=== PATIENT | male | born 1950 | race Caucasian/White ===

== ENCOUNTER 2016-07-24 11:44 | Outpatient (RCR) | payer MEDICARE, OTHER ==
[~2016-07-24 11:44] MED LIST: ASP81TEC PO; CANA1TAB2 PO; CLOP75TA PO; GLIP5TAB13 PO; INSU300I SQ; LISI20TA PO; LOVA20TA2 PO; MECL12.579 PO; MECL25TA56 PO; METO-272 PO; METO25TA2 PO; MTF500T PO
== END 2016-10-22 | disposition home or self-care (01) ==
LOC: LAB 11:44
PROVIDERS: ATTEND Nurse Practitioner Family
DX: R19.7 Diarrhea, unspecified (principal)
CPT/HCPCS: 87045; 87046; 87177; 87324; 87449

== ENCOUNTER 2016-07-29 06:22 | Outpatient (CLI) | payer MEDICARE, OTHER ==
[~2016-07-29] VITALS: Ht 188 cm; Wt 127.0 kg
--- OUTSIDE RECORDS SUMMARY | 2016-07-29 06:26 | XMS REPORT ---
Author Author Samantha Galvan Organization [facility] Address [address] [place], [place] [id number] Care Team Providers Care Justowriter Operator Name Role Phone Mady Galvan PCP Unavailable Allergies and Adverse Reactions Name Reaction Notes NO KNOWN DRUG ALLERGIES Plan of Treatment Planned Activity Comments Planned Date Planned Time Plan/Goal Renal Ultrasound 10/20/2015 12:00 AM Medications Active Name Start Date Estimated Completion Date SIG Comments lisinopril oral Invokamet 50-1,000 mg oral tablet take 1 tablet by oral route 2 times per day with meals Toujeo SoloStar 300 unit/mL (1.5 mL) subcutaneous insulin pen inject by subcutaneous route as per insulin protocol Aspir-81 81 mg oral tablet,delayed release (DR/EC) take 1 tablet (81 mg ) by oral route once daily glipizide 5 mg oral tablet take 1 tablet (5 mg) by oral route 2 times per day before meals VitaliKor Oral Cialis 20 mg oral tablet take as instructed Name Start Date Expiration Date SIG Comments Mobic 7.5 mg oral tablet take 1 tablet (7.5 mg) by oral route once daily Discontinued Name Start Date Discontinued Date SIG Comments metformin oral 10/20/2015 Problem List Description Status Onset Benign Hypertrophy of Prostate (BPH) Active 07/28/2014 Groin pain, right Active 04/12/2015 Benign non-nodular prostatic hyperplasia with lower urinary tract symptoms Active 04/12/2015 History of urinary calculi Active 10/20/2015 Back pain without radiation Active 10/20/2015 Benign hypertrophy of prostate Active 10/20/2015 ED (erectile dysfunction) Active 10/30/2015 Vital Signs Date Time BP-Sys(mm[Hg] BP-Kasandra(mm[Hg]) HR(bpm) RR(rpm) Temp WT HT HC BMI BSA BMI Percentile O2 Sat(%) 10/30/2015 11:18:00 AM 300 lbs 74 in 38.52 kg/m2 2.67 m2 04/12/2015 8:48:00 AM 300 lbs 74 in 38.5173 kg/m 2.6655 m 07/28/2014 10:25:00 AM 300 lbs 74 in 38.52 kg/m2 2.67 m2 Social History Name Description Comments Alcohol Former Tobacco Former smoker History of Procedures Date Ordered Description Order Status 04/12/2015 9:37 AM URINALYSIS AUTO W/O SCOPE Reviewed 10/20/2015 12:00 AM ASSAY OF PSA TOTAL Reviewed 10/20/2015 1:51 PM URINALYSIS AUTO W/O SCOPE Reviewed 10/26/2015 12:[address] ABD & PELVIS W/O CONTRAST Reviewed 07/28/2014 2:38 PM URINALYSIS AUTO W/O SCOPE Reviewed Results Summary Data and Description Results 07/28/2014 2:38 PM Bilirub Ur Ql Strip -VE Glucose Ur-sCnc TRACE Hgb Ur Ql Strip -VE Ketones Ur Ql Strip -VE Nitrite Ur Ql Strip -VE pH Ur-LsCnc 6.0 Prot Ur Ql Strip -VE Sp Gr Ur Qn 1015 Urobilinogen Ur-mCnc -VE WBC Est Ur Ql Strip - VE 04/12/2015 9:37 AM Clarity Ur CLEAR Color Ur ----- Glucose Ur-sCnc TRACE Bilirub Ur Ql Strip -VE Ketones Ur Ql Strip -VE Sp Gr Ur Qn 1020 Hgb Ur Ql Strip -VE pH Ur-LsCnc 6.0 Prot Ur Ql Strip -VE Urobilinogen Ur-mCnc -VE Nitrite Ur Ql Strip -VE WBC Est Ur Ql Strip -VE 10/20/2015 11:05 AM PSA TOTAL 1.710 ng/mL 10/20/2015 1:51 PM Clarity Ur CLEAR Color Ur ------- Glucose Ur-sCnc -VE Bilirub Ur Ql Strip -VE Ketones Ur Ql Strip -VE Sp Gr Ur Qn 1020 Hgb Ur Ql Strip -VE pH Ur-LsCnc 6- Prot Ur Ql Strip -VE Urobilinogen Ur-mCnc -VE History Of Immunizations Not available. History of Past Illness Name Date of Onset Comments Benign Hypertrophy of Prostate (BPH) 07/28/2014 Groin pain, right 04/12/2015 Benign non-nodular prostatic hyperplasia with lower urinary tract symptoms 09/2014 History of urinary calculi 10/20/2015 Back pain without radiation 10/20/2015 Benign hypertrophy of prostate 10/20/2015 ED (erectile dysfunction) 10/30/2015 Benign Hypertrophy of Prostate (BPH) Jul 28 2014 10:26AM Groin pain, right Apr 12 2015 8:49AM Benign non-nodular prostatic hyperplasia with lower urinary tract symptoms Apr 12 2015 8:49AM Flank pain Oct 20 2015 10:39AM History of kidney stones Oct 20 2015 10:39AM Screening for prostate cancer Oct 20 2015 10:39AM Right Back pain without radiation Oct 20 2015 10:04AM History of urinary calculi Oct 20 2015 10:04AM Benign hypertrophy of prostate Oct 20 2015 10:04AM Flank pain Oct 26 2015 1:56PM History of kidney stones Oct 26 2015 1:56PM ED (erectile dysfunction) Oct 30 2015 11:19AM Payers Insurance Name Company Name Plan Name Plan Number Policy Number Policy Group Number Start Date Medicare Part B Medicare Of [place] [id number] N/A History of Encounters Visit Date Visit Type Provider 10/30/2015 Office visit V Liseth Galvan MD 10/20/2015 Office visit V Liseth Galvan MD 04/12/2015 Office visit V Liseth Galvan MD 07/28/2014 Office visit Samantha Galvan MD
== END 2016-07-29 14:10 ==
LOC: PREOP 06:22
PROVIDERS: ATTEND Surgery Pediatric Surgery
DX: Z01.818 Encounter for other preprocedural examination (principal); Z12.11 Encounter for screening for malignant neoplasm of colon; Z87.19 Personal history of other diseases of the digestive system

== ENCOUNTER 2016-07-31 09:28 | Day surgery (SDC) | payer MEDICARE, OTHER ==
[~2016-07-31] VITALS: Ht 188 cm; Wt 127.0 kg
[2016-07-31] MEDS ORDERED: LIDOCAINE JELLY 2% (XYLOCAINE) 5 ML TUBE MM PRN (09:45)
[2016-07-31] MEDS ORDERED: NS IV 500 ML 500 ML IV PRN (09:45)
[2016-07-31] MEDS ORDERED: NALOXONE 0.4 MG/ML 1 ML (NARCAN) VIAL IVP PRN (09:45)
[2016-07-31] MEDS ORDERED: FLUMAZENIL (ROMAZICON) 0.1 MG/ML 5 ML VIAL INJ PRN (09:45)
[2016-07-31 09:58] VITALS: BP 151/75
--- NOTE | 2016-07-31 10:15 | Conscious Sedation/ASA ---
Conscious Sedation Pre-Proced Time Reviewed: 10:15 ASA Class: 2 Airway Mallampati Classification: ([place] appropriate class) I. II. III, IV Lungs Heart ASA score ASA 1: a normal healthy patient ASA 2: a patient with a mild systemic disease (mid diabetes, controlled hypertension, obesity ASA 3: a patient with a severe systemic disease that limits activity (angina , COPD, prior Myocardial infarction) ASA 4: a patient with an incapacitating disease that is a constant threat to life (CHF, renal failure) ASA 5: a moribund patient not expected to survive 24 hrs. (ruptured aneurysm) ASA 6: a declared brain patient whose organs are being harvested. For emergent operations, add the letter E after the classification Grade 2 Sedation Plan: Analgesia, Amnesia, Plan communicated to team members, Discussed options with patient/fam, Discussed risks with patient/fam Note The patient is an appropriate candidate to undergo the planned procedure, sedation, and anesthesia. The patient immediately re-assessed prior to indication. EPHRAIM RAWLS MD Jul 31, 2016 10:15 am
--- NOTE | 2016-07-31 10:20 | Progress Note-Pre Operative ---
Pre-Operative Progress Note H&P Reviewed The H&P was reviewed, patient examined and no changes noted. Date H&P Reviewed: Jul 31, 2016 Time H&P Reviewed: 10:15 Pre-Operative Diagnosis: diarrhea EPHRAIM RAWLS MD Jul 31, 2016 10:20 am
[2016-07-31] MEDS ORDERED: ONDANSETRON 4 MG/2 ML (SDV) Z0FRAN IV PRN (10:30)
[2016-07-31] MEDS ORDERED: ACETAMINOPHEN 325 MG TABLET/CAPLET (TYLENOL) PO PRN (10:30)
[2016-07-31] MEDS ORDERED: HYDROcodone/APAP 5 MG/325 MG (LORTAB) TAB PO PRN (10:30)
[2016-07-31] MEDS ORDERED: morphine INJ 10 MG/ML 1ML (SYR OR VIAL) IV PRN (10:30)
[2016-07-31] MEDS ORDERED: LIDOCAINE JELLY 2% (XYLOCAINE) 5 ML TUBE ONE (11:22)
[2016-07-31] MEDS ORDERED: MIDAZOLAM 2 MG/2 ML (VERSED) VIAL ONE ×4 (11:23)
[2016-07-31] MEDS ORDERED: fentaNYL INJECTION 100 MCG/2 ML AMP ONE ×2 (11:23)
[2016-07-31] MEDS: fentaNYL INJECTION 100 MCG/2 ML AMP IVP PRN ×2 (11:27→11:29)
[2016-07-31] MEDS: MIDAZOLAM 2 MG/2 ML (VERSED) VIAL IVP PRN ×3 (11:28→11:33)
--- NOTE | 2016-07-31 12:05 | Progress Note-Post Operative ---
Post-Operative Progess Note Pre-Operative Diagnosis diarrhea Post-Operative Diagnosis chronic stage 2 ext and int hemorrhoids. Post-Op Procedure Note Date of Procedure: Jul 31, 2016 Name of Procedure: Colonoscopy Anesthesia Type CS Estimated blood loss (mL): minimal Specimen(s) collected stool EPHRAIM RAWLS MD Jul 31, 2016 12:05 pm
--- NOTE | 2016-07-31 12:07 | Discharge Inst-Surgical ---
D/C Lap Instructions-CURLY Follow Up PRN Activity as tolerated High Fiber Diet 25g or more per day Avoid Alcohol, Caffeine, Spicy [place] and Acid foods. Drink 64 fluid oz or more of fluids per day. Symptoms to Report: Fever over 101 degree F, Nausea/Vomiting If any problems/questions: Contact your physician or go to Emergency Room EPHRAIM RAWLS MD Jul 31, 2016 12:07 pm
[2016-07-31 12:25] VITALS: BP 117/69
[2016-07-31 12:55] VITALS: BP 121/66
--- NOTE | 2016-08-01 11:48 | OPERATIVE REPORT ---
PROCEDURE PHYSICIAN: EPHRAIM GOLDSTEIN DATE OF PROCEDURE: 07/31/2016 ATTENDING PRIMARY CARE PHYSICIAN: Dr. Flowers. PREOPERATIVE DIAGNOSIS: Persistent diarrhea. POSTOPERATIVE DIAGNOSES: 1. Chronic, mild stage II external and internal hemorrhoids. 2. The remainder of the rectum and colon were normal. 3. There were no mucosal inflammatory changes, as well as no neoplasms identified. PROCEDURE: Colonoscopy. SURGEON: Dr. Goldstein. ANESTHESIA: Conscious sedation. ESTIMATED BLOOD LOSS: Minimal. FINDINGS: 1. Chronic stage II external and internal hemorrhoids. 2. Prostate gland was palpable and appeared normal. 3. The remainder of the rectum and colon were normal. 4. There were no mucosal inflammatory changes to indicate any active colitis as well as no polyps or any neoplasms. DISPOSITION: The patient tolerated the procedure well. Mr. Vladimir Hunt is a 66-year-old male with chronic and persistent diarrhea. He reports that his last colonoscopy was around 2007, and he believes that to be normal. He reports that for greater than 6 months, he has had diarrhea which he feels is foul-smelling. He does not report any recent travel, as well as no new water-drinking sources. He also does not report any change in diet. He does report that he potentially could have had some medication changes throughout this time frame. He reports that he did have an accident where a glass broke causing several lacerations. He reports that he also has had some upper respiratory infections requiring antibiotics. He does not report any abdominal pain, as well as no rectal bleeding. He has also does not report any family history of colon cancer. The patient was brought to the endoscopy suite, laid in left lateral decubitus position. After adequate IV pain and sedative medications and conscious sedation anesthesia, a digital rectal examination was performed. Chronic mild stage II external and internal hemorrhoids were identified with no active inflammation or bleeding. The prostate gland was palpable and appeared normal. The endoscope was then intubated into the anus, rectum gently insufflated. The endoscope was advanced through the valves of Devine the rectum with no polyps or any neoplasms identified, as well as no signs of proctitis. The endoscope was then advanced through the sigmoid colon where there were no diverticula identified. The endoscope was then advanced through the remainder of the descending, transverse, and ascending colon of the cecum. These segments were normal as well. There were no mucosal inflammatory changes to indicate any active colitis, as well as no polyps or any neoplasms identified. The endoscope was then slowly withdrawn while taking a second look. The stool within the right side of the colon was aspirated and sent for culture and sensitivity as well as ova and parasites. The patient tolerated the procedure well. We will await the culture and sensitivity results however, have him proceed with a high fiber diet with at least 30 grams of fiber per day to hopefully promote soft stools on a daily basis with no episodes of diarrhea, as well as no constipation. Job ID: [id number] Dictated Date: 07/31/2016 12:06:43 Supervisor Multifocal Lens Date: 08/01/2016 11:38:44 / shaista
== END 2016-07-31 12:55 | disposition home or self-care (01) ==
LOC: ENDO 09:28
PROVIDERS: ATTEND Surgery Pediatric Surgery
DX: K64.1 Second degree hemorrhoids (principal); R19.7 Diarrhea, unspecified
CPT/HCPCS: 87045; 87046; 87177

== ENCOUNTER 2016-08-22 09:42 | Outpatient (RCR) | payer MEDICARE, OTHER | END 2016-10-16 15:50 | disposition home or self-care (01) | PROVIDERS: ATTEND Orthopaedic Surgery | DX: M47.892 Other spondylosis, cervical region (principal); M75.01 Adhesive capsulitis of right shoulder; M75.02 Adhesive capsulitis of left shoulder ==

== ENCOUNTER → 2018-07-01 | Outpatient (CLI) | payer MEDICARE, OTHER ==
--- NOTE | 2018-07-01 09:07 | Diagnostic Imaging Report ---
PROCEDURE: US Abdomen, limited. TECHNIQUE: Multiple realtime grayscale images were obtained over the abdomen in various projections. INDICATION: Abdominal pain. Study is performed to evaluate for hernia. Sonography interrogation of the area of pain in the right lower quadrant was performed. No abdominal wall defect or hernia is seen. No mass or fluid collection is identified. IMPRESSION: No sonographic abnormality is identified. Dictated by: Dictated on workstation # [id number]
== END ==
LOC: RAD 06:41
PROVIDERS: ATTEND Nurse Practitioner Family
DX: K59.00 Constipation, unspecified (principal); E66.9 Obesity, unspecified; I10 Essential (primary) hypertension; I65.29 Occlusion and stenosis of unspecified carotid artery; E11.9 Type 2 diabetes mellitus without complications; M10.9 Gout, unspecified; I25.10 Atherosclerotic heart disease of native coronary artery without angina pectoris; Z95.1 Presence of aortocoronary bypass graft
CPT/HCPCS: 76705

== ENCOUNTER → 2018-07-03 | Outpatient (CLI) | payer MEDICARE, OTHER ==
[~2018-07-03] MED LIST changes: +IOHEXOL 350 MG/ML 100 ML (OMNIPAQUE 350) VIAL IV ONE; +NS 100 ML (IVPB) BAG IV ONE; +RECEIVED CONTRAST (Hold Metformin) IV SCH
[2018-07-03 14:53] LABS: ALANINE AMINOTRANSFERASE 18 U/L (0-55); ALBUMIN 4.4 GM/DL (3.2-4.5); ALKALINE PHOSPHATASE 47 U/L (40-136); BILIRUBIN,TOTAL 0.4 MG/DL (0.1-1.0); BUN/CREATININE RATIO 19; CALCIUM 9.3 MG/DL (8.5-10.1); CARBON DIOXIDE 23 MMOL/L (21-32); CHLORIDE 106 MMOL/L (98-107); CREATININE SERUM 0.99 MG/DL (0.60-1.30); GFR ESTIMATED > 60; GLUCOSE 99 MG/DL (70-105); SODIUM 139 MMOL/L (135-145); TOTAL PROTEIN 6.9 GM/DL (6.4-8.2)
--- NOTE | 2018-07-03 15:36 | Diagnostic Imaging Report ---
PROCEDURE: CT abdomen and pelvis with contrast. TECHNIQUE: Multiple contiguous axial images were obtained through the abdomen and pelvis after administration of intravenous contrast. INDICATION: Right lower quadrant pain. COMPARISON: Correlation is made with prior study from 01/26/2016. FINDINGS: The lung bases are clear. Liver demonstrates mild generalized low density consistent with hepatic steatosis. No discrete liver mass is seen. Gallbladder is unremarkable. No biliary ductal dilatation is seen. The pancreas and spleen are unremarkable. No adrenal mass is detected. Kidneys are grossly unremarkable. Aorta is calcified but non-aneurysmal. Bowel loops are normal in caliber. Appendix is visualized and appears unremarkable. No inflammatory process is seen. There is no ascites. Prostate gland is enlarged measuring 6.0 x 6.7 cm. Bladder is decompressed. No definite abdominal or pelvic lymphadenopathy is seen. IMPRESSION: 1. Hepatic steatosis. 2. No acute feature in the abdomen or pelvis is identified. 3. Prostatomegaly. Dictated by: Dictated on workstation # [id number]
== END ==
LOC: RAD 14:09
PROVIDERS: ATTEND Nurse Practitioner Family
DX: K76.0 Fatty (change of) liver, not elsewhere classified (principal)
CPT/HCPCS: 36415; 74177; 80053

== ENCOUNTER 2018-12-17 11:00 | Outpatient (CLI) | payer MEDICARE, OTHER ==
[~2018-12-17] VITALS: Ht 188 cm; Wt 108.9 kg
[~2018-12-17 11:00] MED LIST changes: +EMPA10TA PO; -IOHEXOL 350 MG/ML 100 ML (OMNIPAQUE 350) VIAL IV ONE; +LIRA0.6P3 SQ; +METF-397 PO; -NS 100 ML (IVPB) BAG IV ONE; -RECEIVED CONTRAST (Hold Metformin) IV SCH
== END 2018-12-17 12:45 | disposition home or self-care (01) ==
LOC: PREOP 11:00
PROVIDERS: ATTEND Surgery
DX: Z01.818 Encounter for other preprocedural examination (principal)

== ENCOUNTER → 2019-04-01 | Outpatient (CLI) | payer MEDICARE, OTHER ==
--- NOTE | 2019-04-01 12:39 | Diagnostic Imaging Report ---
PROCEDURE: US carotid duplex, bilateral. TECHNIQUE: Multiple real-time grayscale images were obtained over the carotid arteries in various projections, bilaterally. Additional spectral analysis and color Doppler duplex images were also obtained. INDICATION: Coronary artery disease. Patient has had prior left carotid endarterectomy in 2010. FINDINGS: Moderate calcified plaque is identified at the right carotid bifurcation extending into the proximal internal and external carotid arteries. No significant velocity elevation is identified. Left carotid system shows normal velocities. Left vertebral artery demonstrates antegrade flow. The right vertebral artery was not well visualized. IMPRESSION: Moderate right carotid plaque. However, no hemodynamically significant stenosis is detected. Note is made that the right vertebral artery was not well visualized. Parameters based on the consensus panel Jackson-Scale and Doppler ultrasound criteria published April 2003, Radiology, Volume 229. DOPPLER (peak systolic velocity M/S Right Left CCA .94 .81 ICA Proximal .72 .48 ICA Mid .58 .92 ICA Distal .49 .74 RATIO .8 1.1 ECA 1.65 1.21 VERT Not visualized adequately .47 Dictated by: Dictated on workstation # [id number]
== END ==
LOC: RAD 10:08
PROVIDERS: ATTEND Nurse Practitioner Family
DX: I25.10 Atherosclerotic heart disease of native coronary artery without angina pectoris (principal); I65.29 Occlusion and stenosis of unspecified carotid artery; Z98.890 Other specified postprocedural states
CPT/HCPCS: 93880

== ENCOUNTER → 2019-05-03 | Outpatient (CLI) | payer MEDICARE, OTHER | LOC: CARD 08:57 | PROVIDERS: ATTEND Internal Medicine Cardiovascular Disease | DX: E78.5 Hyperlipidemia, unspecified (principal); I10 Essential (primary) hypertension; R06.09 Other forms of dyspnea | CPT/HCPCS: 93306 ==

== ENCOUNTER 2020-02-01 07:38 | Outpatient (CLI) | payer MEDICARE, OTHER ==
[~2020-02-01] VITALS: Ht 162 cm; Wt 128.0 kg
[2020-02-01] MEDS ORDERED: SEMA1PEN SQ (15:49)
[2020-02-01] MEDS ORDERED: LISI2.5T PO (15:49)
== END 2020-02-01 15:54 | disposition home or self-care (01) ==
LOC: PREOP 07:38
PROVIDERS: ATTEND Surgery
DX: Z01.818 Encounter for other preprocedural examination (principal)

== ENCOUNTER 2020-02-08 09:50 | Day surgery (SDC) | payer MEDICARE, OTHER ==
[~2020-02-08] VITALS: Ht 162 cm; Wt 128.0 kg
[2020-02-08] VITALS (7 sets, daily range): BP systolic 129–153; BP diastolic 74–80
[~2020-02-08 09:50] MED LIST changes: +LISI2.5T PO; +SEMA1PEN SQ
[2020-02-08] MEDS ORDERED: LACTATED RINGERS 1,000 ML IV ONE (10:01)
[2020-02-08] MEDS ORDERED: MIDAZOLAM 2 MG/2 ML (VERSED) VIAL ONE (10:15)
[2020-02-08] MEDS ORDERED: LACTATED RINGERS 1,000 ML IV PRN (10:15)
[2020-02-08] MEDS ORDERED: PROPOFOL INJECTION 50 ML IV ONE (10:15)
--- NOTE | 2020-02-08 10:15 | Progress Note-Pre Operative ---
Pre-Operative Progress Note H&P Reviewed The H&P was reviewed, patient examined and no changes noted. Date Seen by Provider: Feb 08, 2020 Time Seen by Provider: 10:14 Date H&P Reviewed: Feb 08, 2020 Time H&P Reviewed: 10:14 Pre-Operative Diagnosis: history of polyps KAYLA PRASAD DO Feb 08, 2020 10:15
--- NOTE | 2020-02-08 11:03 | Discharge Inst-Simple/Standard ---
Discharge Inst-Standard Patient Instructions/Follow Up Plan of Care/Instructions/FU: 2 weeks robert Activity as Tolerated: Yes Discharge Diet: Regular Diet (high fiber) KAYLA PRASAD DO Feb 08, 2020 11:03
--- NOTE | 2020-02-08 11:03 | Progress Note-Post Operative ---
Post-Operative Progess Note Surgeon (s)/Marine Radio Installer And Servicer (s) Surgeon KAYLA PRASAD DO Marine Radio Installer And Servicer: na Pre-Operative Diagnosis history of polyps Post-Operative Diagnosis transverse colon polyp and internal hemorrhoids Procedure & Operative Findings Date of Procedure 02/08/20 Procedure Performed/Findings colonoscopy with hot biopsy polypectomy Anesthesia Type per ASSEMBLER FITTER Estimated Blood Loss Estimated blood loss (mL): none Specimens/Packing Specimens Removed transverse colon polyp KAYLA PRASAD DO Feb 08, 2020 11:03
--- NOTE | 2020-02-08 11:19 | Anesthesia-General Post-Op ---
MAC Patient Condition Mental Status/LOC: Same as Preop Cardiovascular: Satisfactory Nausea/Vomiting: Absent Respiratory: Satisfactory Pain: Controlled Complications: Absent Post Op Complications Complications None Follow Up Care/Instructions Patient Instructions None needed. Anesthesiology Discharge Order Discharge Order Patient is doing well, no complaints, stable vital signs, no apparent adverse anesthesia problems. No complications reported per nursing. HEIDI NORWOOD CRNA Feb 08, 2020 11:19
--- NOTE | 2020-02-08 13:29 | OPERATIVE REPORT ---
DATE OF SERVICE: 02/08/2020 PREOPERATIVE DIAGNOSIS: History of colon polyps. POSTOPERATIVE DIAGNOSIS: Transverse colon polyp and internal hemorrhoids. PROCEDURES PERFORMED: Colonoscopy with hot biopsy polypectomy. SURGEON: Kayla Hare DO ANESTHESIA: Per HVAC REFRIGERATION TECHNICIAN. ESTIMATED BLOOD LOSS: None. COMPLICATIONS: None. INDICATIONS FOR PROCEDURE: The patient is a 69-year-old male with history of colon polyps. He understands risks and benefits of procedure and wished to proceed with procedure. Consent was signed in the chart. DESCRIPTION OF PROCEDURE: The patient was taken to the endoscopy suite and placed in a left lateral recumbent position. Timeout was performed. Digital rectal exam was performed. There were no palpable polyps, masses or ulcerations. Scope was inserted in the rectum and advanced all the way to cecum with minimal difficulty. Prep was adequate. Scope was slowly retracted back. There were no polyps, masses or ulcerations within the cecum and ascending colon. In the transverse colon, a small polyp was present, which hot biopsy polypectomy was performed. Scope was then continuously retracted back. No other polyps, masses or ulcerations visualized within the remainder of the transverse, descending and sigmoid colon. Once in the rectum, scope was retroflexed noting some internal hemorrhoids. No other pathology noted. Scope was returned to its normal position and slowly withdrawn until completely removed. The patient tolerated procedure well without any complications and taken to recovery room in stable condition. RECOMMENDATIONS: The patient will need repeat colonoscopy in 5 years. Any issues before that will be seen at that time. The patient will follow up in the office in about two weeks to discuss pathology results. Job ID: [id number] DocumentID: [id number] Dictated Date: 02/08/2020 11:08:50 Multi Disciplined Language Analyst Date: 02/08/2020 13:29:12 Dictated By: KAYLA HARE DO
== END 2020-02-08 11:55 | disposition home or self-care (01) ==
LOC: ENDO 09:50
PROVIDERS: ATTEND Surgery
DX: Z12.11 Encounter for screening for malignant neoplasm of colon (principal); D12.3 Benign neoplasm of transverse colon; K64.8 Other hemorrhoids; E11.9 Type 2 diabetes mellitus without complications; I25.10 Atherosclerotic heart disease of native coronary artery without angina pectoris; I10 Essential (primary) hypertension; E66.01 Morbid (severe) obesity due to excess calories; Z68.42 Body mass index [BMI] 45.0-49.9, adult; I65.29 Occlusion and stenosis of unspecified carotid artery; I08.1 Rheumatic disorders of both mitral and tricuspid valves; Z95.5 Presence of coronary angioplasty implant and graft; G47.33 Obstructive sleep apnea (adult) (pediatric); M06.9 Rheumatoid arthritis, unspecified; Z79.84 Long term (current) use of oral hypoglycemic drugs; Z79.899 Other long term (current) drug therapy; Z86.010 Personal history of colon polyps
CPT/HCPCS: 82962; 88305

== ENCOUNTER → 2020-03-07 | Outpatient (CLI) | payer MEDICARE, OTHER ==
--- NOTE | 2020-03-07 13:54 | Diagnostic Imaging Report ---
PROCEDURE: US carotid duplex bilateral. TECHNIQUE: Multiple Real-time grayscale images were obtained over the carotid arteries in various projections, bilaterally. Additional spectral analysis and color Doppler duplex images were also obtained. INDICATION: Syncope. FINDINGS: The previous carotid Doppler exam of 04/01/2019 noted atherosclerotic disease involving both carotid systems, particularly the right carotid system. There was no hemodynamically significant stenosis identified. On this exam, there is again atherosclerotic disease of both carotid systems; however, the flow velocities still fail to show any sign of a hemodynamically significant stenosis of the common or internal carotid arteries. There is antegrade flow in the left vertebral artery. As on the prior exam, the right vertebral artery was not well visualized. IMPRESSION: 1. There is no evidence for a hemodynamically significant stenosis of the common or internal carotid arteries. 2. There is antegrade flow in the left vertebral artery but the right vertebral artery could not be identified. Parameters based on the consensus panel Jackson-Scale and Doppler ultrasound criteria published April 2003, Radiology, Volume 229. DOPPLER (peak systolic velocity M/S Right Left CCA .76 .74 ICA Proximal .64 .64 ICA Mid .43 .86 ICA Distal .44 .75 RATIO .84 1.2 ECA 1.6 1.5 VERT NA .52 Dictated by: Dictated on workstation # [id number]
== END ==
LOC: RAD 12:00
PROVIDERS: ATTEND Nurse Practitioner Family
DX: I51.7 Cardiomegaly (principal); R55 Syncope and collapse; R51 Headache
CPT/HCPCS: 93306; 93880

== ENCOUNTER → 2020-05-29 | Outpatient (CLI) | payer MEDICARE, OTHER ==
[~2020-05-29] MED LIST changes: +HOLD METFORMIN - RECEIVED CONTRAST 20 ML VIAL IV SCH; +IOHEXOL 350 MG/ML 100 ML (OMNIPAQUE 350) VIAL IV ONE; +NS 100 ML (IVPB) BAG IV ONE
[2020-05-29 12:16] LABS: CREATININE SERUM 1.21 MG/DL (0.60-1.30)
--- NOTE | 2020-05-29 13:41 | Diagnostic Imaging Report ---
PROCEDURE: CT angiography of the head and CT angiography of the neck with and without contrast. TECHNIQUE: Contiguous noncontrast images were obtained from the skull base through the vertex. After intravenous contrast administration, helical CT angiography of the neck was performed. Source data was reformatted into 3D MIP projections. Delayed post contrast acquisition was also obtained. Auto Exposure Controls were utilized during the CT exam to meet ALARA standards for radiation dose reduction. INDICATION: Headache. Patient has had prior left carotid endarterectomy. CT angiogram head: Precontrast imaging through the brain is unremarkable. Ventricular size and sulcal pattern are normal. No sulcal effacement, midline shift or hemorrhage is detected. Cisterns are patent. Visualized paranasal sinuses are clear. Delayed postcontrast imaging through the brain is unremarkable for enhancing lesion. CT angiographic portion of the exam does show some calcified plaque in both carotid siphons. The M1 and M2 segments of the middle cerebral arteries bilaterally are widely patent. No thromboembolism was seen. The right and left anterior cerebral arteries appear to be widely patent. Right and left posterior cerebral arteries appear to be widely patent. The basilar artery is patent. CT angiogram neck: There is a three-vessel branching pattern to the aortic arch. There is moderate amount of calcified plaque at the origin of the left subclavian artery. The left common carotid artery is widely patent. The right common carotid artery is widely patent. There is a large amount of calcified plaque at the right carotid bifurcation. The right internal carotid artery appears to be widely patent. There are postsurgical changes of left carotid endarterectomy. Left internal carotid artery appears to be widely patent. The left vertebral artery is dominant. The left vertebral artery appears widely patent. The right vertebral artery is very small. There appears to be a large amount of calcified plaque in the proximal aspect of the right vertebral artery. No other significant abnormality is seen. IMPRESSION: 1. No intracranial abnormality is detected. There is no aneurysm, vascular malformation or thromboembolism. 2. Moderate amount of calcified plaque at the right carotid bifurcation but no high-grade stenosis is identified. 3. Postoperative changes of left carotid endarterectomy. No carotid stenosis is identified. 4. Dominant left vertebral artery. The right vertebral artery is very small but no other significant abnormality is seen. Dictated by: Dictated on workstation # [id number]
== END ==
LOC: RAD 12:45
DX: I65.01 Occlusion and stenosis of right vertebral artery (principal); I67.2 Cerebral atherosclerosis
CPT/HCPCS: 36415; 70496; 70498; 82565; 84520

== ENCOUNTER → 2021-07-30 | Outpatient (CLI) | payer MEDICARE, OTHER ==
[~2021-07-30] MED LIST changes: +CATHETER FLUSH 10 ML SYR IV PRN; -HOLD METFORMIN - RECEIVED CONTRAST 20 ML VIAL IV SCH; -IOHEXOL 350 MG/ML 100 ML (OMNIPAQUE 350) VIAL IV ONE; -LISI2.5T PO; +LISI2.5T13 PO; -NS 100 ML (IVPB) BAG IV ONE
[2021-07-30 09:30] VITALS: BP 145/72
--- NOTE | 2021-07-30 11:39 | Cardiology Stress Test Report ---
Stress Test Report Date of Procedure/Referring: Date of Procedure: Jul 30, 2021 PCP Lis Delarosa MD Admitting Physician Trini Flowers MD Indications: HTN Baseline Heart Rate: 81 Baseline Blood Pressure: Blood Pressure Systolic: 145 Blood Pressure Diastolic: 72 Vital Signs Date Time Temp Pulse Resp B/P (MAP) Pulse Ox O2 Delivery O2 Flow Rate FiO2 07/30/21 09:30 81 16 145/72 (96) 95 Room Air Baseline Vital Signs Vital Signs Date Time Temp Pulse Resp B/P (MAP) Pulse Ox O2 Delivery O2 Flow Rate FiO2 07/30/21 09:30 81 16 145/72 (96) 95 Room Air Baseline EKG: Baseline EKG: NSR Summary: After explaining the procedure and details to the patient, he signed the consent and was brought to the stress nuclear laboratory. Patient exercised on standard Luciano protocol, EKG, heart rate and blood pressure were monitored continuously, resting and stress doses of radio tracer were injected, imaging was acquired and reviewed in the short axis, horizontal long axis and vertical long axis views Patient was able to exercise for a total of 4 minutes on Luciano protocol, METs 5.8 Maximum heart rate 135 Maximum blood pressure 228/71 Stress EKG, Minimal nondiagnostic changes Recovery EKG, Return to baseline TID: 1.12 SSS: 2 SDS: 0 EF: 57 Conclusion: 1. Good exercise tolerance for a total of 4 minutes on standard Luciano protocol, 5.8 METS achieving 91% of maximal expected heart rate 2. Appropriate heart rate response to exercise with severe hypertensive response to exercise with peak blood pressure 228/71 return to baseline during recovery 3. Minimal nondiagnostic EKG changes with exercise with 1 ventricular couplets occurred at peak stress level, no other arrhythmia was detected, return to baseline during recovery 4. No significant ischemia or infarction on SPECT images 5. Normal left ventricular size, EF 57% LIS DELAROSA MD Jul 30, 2021 11:39
== END ==
LOC: CARD 07:34
PROVIDERS: ATTEND Internal Medicine Cardiovascular Disease
DX: I10 Essential (primary) hypertension (principal)
CPT/HCPCS: 78452; 93017; A9502

== ENCOUNTER → 2022-01-11 | Outpatient (CLI) | payer MEDICARE, OTHER ==
[~2022-01-11] MED LIST changes: -CATHETER FLUSH 10 ML SYR IV PRN
[2022-01-11 07:28] LABS: ALBUMIN 4.1 GM/DL (3.2-4.5); POTASSIUM 4.1 MMOL/L (3.6-5.0)
[2022-01-11 07:31] LABS: TOTAL PROTEIN 6.5 GM/DL (6.4-8.2)
[2022-01-11 07:32] LABS: BILIRUBIN,TOTAL 0.4 MG/DL (0.1-1.0)
[2022-01-11 07:34] LABS: CREATININE SERUM 1.01 MG/DL (0.60-1.30)
== END ==
LOC: CARD 08:30
PROVIDERS: ATTEND Internal Medicine Cardiovascular Disease
DX: I11.9 Hypertensive heart disease without heart failure (principal); I34.0 Nonrheumatic mitral (valve) insufficiency; I65.23 Occlusion and stenosis of bilateral carotid arteries; E78.2 Mixed hyperlipidemia; I25.10 Atherosclerotic heart disease of native coronary artery without angina pectoris
CPT/HCPCS: 36415; 80053; 80061; 93306

== ENCOUNTER 2022-02-13 09:07 | Day surgery (SDC) | payer MEDICARE, OTHER ==
[~2022-02-13] VITALS: Ht 187.9 cm; Wt 126.4 kg
[2022-02-13] VITALS (21 sets, daily range): BP systolic 141–171; BP diastolic 62–97
[2022-02-13] MEDS ORDERED: NS IV 1000 ML 1,000 ML IV SCH (09:30)
--- NOTE | 2022-02-13 09:48 | Diagnostic Imaging Report ---
INDICATION: Hypertension and coronary artery disease and chest pain. Frontal chest obtained at 0944 a.m. and compared to 01/26/2016. Heart and mediastinal silhouette are normal in appearance. The lungs are clear. There is no pneumothorax or pleural fluid. IMPRESSION: Negative chest. Dictated by: Dictated on workstation # [id number]
[2022-02-13 09:56] LABS: HEMATOCRIT 40 % (40-54); HEMOGLOBIN 13.2 g/dL (13.3-17.7); MEAN CORPUSCULAR HEMOGLOBIN 28 pg (25-34); MEAN CORPUSCULAR HGB CONC 33 g/dL (32-36); MEAN CORPUSCULAR VOLUME 86 fL (80-99); MEAN PLATELET VOLUME 9.2 fL (9.0-12.2); PLATELET COUNT 185 10^3/uL (130-400); WHITE BLOOD COUNT 4.9 10^3/uL (4.3-11.0)
[2022-02-13 10:04] LABS: BILIRUBIN,URINE NEGATIVE (NEGATIVE); CLARITY,URINE CLEAR; COLOR,URINE YELLOW; GLUCOSE, URINE (UA) NEGATIVE (NEGATIVE); KETONES,URINE NEGATIVE (NEGATIVE); LEUKOCYTE ESTERASE ,URINE NEGATIVE (NEGATIVE); NITRITE,URINE NEGATIVE (NEGATIVE); PROTEIN,URINE NEGATIVE (NEGATIVE)
[2022-02-13 10:17] LABS: ALBUMIN 4.3 GM/DL (3.2-4.5)
[2022-02-13 10:18] LABS: POTASSIUM 4.5 MMOL/L (3.6-5.0)
[2022-02-13 10:19] LABS: CALCIUM 9.6 MG/DL (8.5-10.1); INR 0.9 (0.8-1.4); PROTHROMBIN TIME PATIENT 12.6 SEC (12.2-14.7)
[2022-02-13 10:20] LABS: TOTAL PROTEIN 6.8 GM/DL (6.4-8.2)
[2022-02-13 10:22] LABS: BILIRUBIN,TOTAL 0.4 MG/DL (0.1-1.0)
[2022-02-13 10:23] LABS: BACTERIA,URINE NEGATIVE /HPF; SQUAMOUS EPITHELIAL CELL,UR 0-2 /HPF
[2022-02-13 10:24] LABS: CREATININE SERUM 0.97 MG/DL (0.60-1.30)
[2022-02-13] MEDS ORDERED: CHOL-6 PO (10:25)
[2022-02-13] MEDS ORDERED: UBIQ200C3 PO (10:25)
[2022-02-13] MEDS ORDERED: SEMA0.25 SQ (10:25)
[2022-02-13] MEDS ORDERED: OMG1KC PO (10:25)
[2022-02-13] MEDS ORDERED: ASPI-1238 PO (10:25)
[2022-02-13] MEDS ORDERED: INSU100V37 SQ (10:25)
[2022-02-13] MEDS ORDERED: ZINC50TA11 PO (10:25)
[2022-02-13] MEDS ORDERED: TMSL.4C PO (10:25)
[2022-02-13] MEDS ORDERED: DICL75TA2 PO (10:25)
[2022-02-13] MEDS ORDERED: RED600CA2 PO (10:25)
[2022-02-13] MEDS ORDERED: LISI5TAB20 PO (10:25)
[2022-02-13] MEDS ORDERED: HEParin (CATH LAB) 2,000 ML IV ONE (10:45)
[2022-02-13] MEDS ORDERED: NS IV 1000 ML 1,000 ML ONE (10:45)
[2022-02-13] MEDS ORDERED: LIDOCAINE 1% INJ 20 ML VIAL ONE (10:45)
--- NOTE | 2022-02-13 10:56 | Cardiac Procedure Note-CS/ASA ---
Pre-Procedure Note Pre-Op Procedure Note Date of Available H&P: Jan 31, 2022 Date H&P Reviewed: Feb 13, 2022 Time H&P Reviewed: 10:56 History & Physical: H&P Reviewed, Patient Examed, No changes noted Pre-Operative Diagnosis: Coronary artery disease Conscious Sedation Pre-Proced Time 10:56 ASA Score 3 For ASA 3 and 4: Consider anesthesia and medical clearance. Also, for patients with a history of failed moderate sedation consider anesthesia. Airway Lungs Heart ASA score ASA 1: a normal healthy patient ASA 2: a patient with a mild systemic disease (mid diabetes, controlled hypertension, obesity ASA 3: a patient with a severe systemic disease that limits activity (angina, COPD, prior Myocardial infarction) ASA 4: a patient with an incapacitating disease that is a constant threat to life (CHF, renal failure) ASA 5: a moribund patient not expected to survive 24 hrs. (ruptured aneurysm) ASA 6: a declared brain- patient whose organs are being harvested. For emergent operations, add the letter E after the classification Mallampati Classification Grade 3 Sedation Plan Analgesia, Amnesia, Plan communicated to team members, Discussed options with patient/fam, Discussed risks with patient/fam The patient is an appropriate candidate to undergo the planned procedure, sedation, and anesthesia. The patient immediately re-assessed prior to indication. LIS SWEENEY MD Feb 13, 2022 10:56
[2022-02-13] MEDS ORDERED: fentaNYL INJ 100 MCG/2 ML AMP ONE (11:06)
[2022-02-13] MEDS ORDERED: NITRO DRIP 25000 MCG/D5W 250 ML IV ONE (11:06)
[2022-02-13] MEDS ORDERED: MIDAZOLAM 2 MG/2 ML (VERSED) VIAL ONE ×2 (11:06→11:33)
[2022-02-13] MEDS ORDERED: HEParin 1000 UNIT/ML (10ML VIAL) FOR BOLUS ONE (11:06)
[2022-02-13] MEDS ORDERED: VERAPAMIL 5 MG/2 ML (CALAN) VIAL IV ONE (11:06)
[2022-02-13] MEDS ORDERED: ASPIRIN 325 MG (5 GR) TABLET ONE (12:34)
[2022-02-13] MEDS ORDERED: TICAGRELOR 90 MG TABLET (BRILINTA) PO ONE (12:34)
[2022-02-13] MEDS ORDERED: PATIENT MAY USE OWN MEDS, ALL PO SCH (12:45)
--- NOTE | 2022-02-13 13:08 | Cardiac Cath Report ---
Cardiac Cath Report Physician (s)/Supervisor Assembling (s) Physician LIS SWEENEY MD Pre-Procedure Diagnosis Pre-Procedure Diagnosis: Coronary artery disease Post-Procedure Note Procedure Start Date: Feb 13, 2022 Name of Procedure: Left heart catheterization IFR to the LAD IVUS to the LAD Stent deployment to the LAD Findings/Procedure Note PROCEDURE NOTE: 71-year-old gentleman with history of hypertension, hyperlipidemia, diabetes mellitus, coronary artery disease, had an abnormal stress test, scheduled for cardiac catheterization possible PTCA. After explaining the procedure to the patient, all pros and cons were explained, all questions were answered. The patient signed the consent and then he was placed on the cardiac catheterization laboratory. Groin was prepped SL fashion local anesthesia was used. Sheath placed in the right radial artery, Coolspring catheter was used and advanced to the left ventricular cavity, pressure was measured, pullback LV to aorta was done, engage the right and left coronary system, angiogram was done. Patient had multiple lesions in the LAD and circumflex artery. EBU 3.5 guide was used. I advanced the IFR wire through the LAD and measured through the lesions in the LAD, baseline IFR was 0.42. Balloon angioplasty was done using 2.5 x 20 mm balloon with multiple inflation then long 2.5 x 32 mm cynthia point stent was deployed under 16 anthony and IFR was 0.89. There was a distal lesion to the long stent and I decided to proceed with stenting it and used 2.5 x 15 mm cynthia point stent overlapped distally with the previous stent did multiple inflation then I checked IFR and it was 0.94. I proceeded with IVUS and it showed under deployment of the LAD proximally I proceeded with noncompliant 3 x 20 balloon and did balloon angioplasty to the proximal portion of the stent with excellent results. At the end of the procedure the sheath was removed. Vascular band was used FINDINGS: Hemodynamics LV 113/21, end-diastolic pressure of 21 Aorta 108/62 mean of 79 ANATOMY: Left Main is free of obstructive disease Left Anterior Descending has multiple lesions in the proximal mid and distal LAD, successful balloon angioplasty then deployment of 2 overlapping stent cynthia point stent 2.5 x 32 mm followed by 2.5 x 15 mm and deployed distally to 2.8 mm distally and 3.1 mm proximally with excellent results. The second and third diagonal artery has ostial stenosis that was severe and continue to be present. They are too small for intervention. Left Circumflex is moderate in size with severe stenosis after the origin of the first obtuse marginal branch, it will be staged for intervention at a later point Right Coronary Artery is dominant artery with patent stent in the right PDA. Small vessel disease distally LV Gram was not done, pressure was measured CONCLUSION: 1. Severe stenosis at multiple segment of the LAD stenosis successful deployment of cynthia point Christie stents 2.5 x 32 mm followed by 2.5 x 15 mm with excellent results expanded proximally to 3.1 and distally to 2.8 mm with excellent results. 2. IFR in the LAD prior to the intervention was 0.42 and post intervention was 0.94. IVUS to the LAD was done 3. Severe stenosis in the circumflex artery after the origin of the first obtuse marginal branch that will be staged for intervention in 1 to 2 weeks 4. Patent stent in the right PDA with small vessel disease distally 5. Mildly elevated left ventricular end-diastolic pressure DISCUSSION AND RECOMMENDATION: Patient was loaded with aspirin and Brilinta and we will continue maximizing medical therapy Anesthesia Type: Conscious Sedation Estimated blood loss (mL): 35 ml Contrast Amount: 135 ml Total Radiation Dose: 2073 mGy Post-Procedure Diagnosis Post-operative diagnosis: Unstable angina Coronary artery disease Hypertension Hyperlipidemia LIS SWEENEY MD Feb 13, 2022 13:08
[2022-02-13] MEDS: NS IV 1000 ML 1,000 ML IV SCH ×2 (15:49→20:47)
[2022-02-13] MEDS: TICAGRELOR 90 MG TABLET (BRILINTA) PO SCH (20:47)
[2022-02-13] MEDS ORDERED: INSULIN DEGLUDEC 10 UNIT SQ SCH (21:00)
[2022-02-14] VITALS (8 sets, daily range): BP systolic 129–165; BP diastolic 72–92
[2022-02-14 05:36] LABS: HEMATOCRIT 32 % (40-54); HEMOGLOBIN 10.2 g/dL (13.3-17.7); MEAN CORPUSCULAR HEMOGLOBIN 30 pg (25-34); MEAN CORPUSCULAR HGB CONC 32 g/dL (32-36); MEAN CORPUSCULAR VOLUME 93 fL (80-99); MEAN PLATELET VOLUME 9.2 fL (9.0-12.2); PLATELET COUNT 214 10^3/uL (130-400)
[2022-02-14 05:50] LABS: POTASSIUM 2.7 MMOL/L (3.6-5.0)
[2022-02-14 05:51] LABS: CALCIUM 8.2 MG/DL (8.5-10.1)
[2022-02-14 05:56] LABS: CREATININE SERUM 0.79 MG/DL (0.60-1.30)
[2022-02-14] MEDS: TICAGRELOR 90 MG TABLET (BRILINTA) PO SCH ×2 (08:59→20:27)
[2022-02-14] MEDS: NS IV 1000 ML 1,000 ML IV SCH ×4 (09:01→22:30)
[2022-02-14] MEDS ORDERED: KCL 20 MEQ TAB (K-DUR) PO NR (09:30)
[2022-02-14] MEDS: TAMSULOSIN 0.4 MG (FLOMAX) CAP PO SCH (09:35)
[2022-02-14] MEDS: ASPIRIN E.C. 81 MG (ECOTRIN) TAB PO SCH (09:35)
[2022-02-14] MEDS: lisINopril 5 MG (PRINIVIL) TABLET PO SCH (09:35)
--- NOTE | 2022-02-14 12:23 | Cardiology Progress Note ---
Subjective Date Seen by Provider: Feb 14, 2022 Time Seen by Provider: 12:22 Subjective/Events-last exam Patient was seen at bedside, sitting comfortably, denied any active pain Review of Systems General: No Chills, No Night Sweats, No Fatigue, No Malaise, No Appetite, No Other HEENT: No Head Aches, No Visual Changes, No Eye Pain, No Ear Pain, No Dysphasia, No Sinus Congestion, No Post Nasal Drip, No Sore Throat, No Other Pulmonary: No Dyspnea, No Cough, No Pleuritic Chest Pain, No Other Cardiovascular: No: Chest Pain, Palpitations, Orthopnea, Paroxysmal Noc. Dyspnea, Edema, Lt Headedness, Other Objective-Cardiology Exam Last Set of Vital Signs Vital Signs 02/14/22 11:50 Temp 36.7 Pulse 67 Resp 18 B/P (MAP) 165/86 (112) Pulse Ox 95 O2 Delivery Room Air I&O Intake and Output 02/14/22 00:00 Intake Total 1340 ml Output Total 850 ml Balance 490 ml Intake Oral 340 ml IV Total 1000 ml Output Urine Total 850 ml General: Alert, Oriented X3, Cooperative HEENT: Atraumatic, PERRLA Neck: Supple, No JVD, No Thyromegaly Lungs: Clear to Auscultation, Normal Air Movement Heart: Regular Rate, Normal S1, Normal S2, No Murmurs Abdomen: Normal Bowel Sounds, Soft, No Tenderness, No Hepatosplenomegaly, No Masses Extremities: No Clubbing, No Cyanosis, No Edema, Normal Pulses, No Tenderness/Swelling Skin: No Rashes, No Breakdown, No Significant Lesion Neuro: Normal Gait, Normal Speech, Strength at 5/5 X4 Ext, Normal Tone, Sensation Intact Psych/Mental Status: Mental Status NL, Mood NL Results Lab Laboratory Tests 02/14/22 05:10 A/P-Cardiology Admission Diagnosis Chest pain Coronary artery disease Hypertension Hyperlipidemia Assessment/Plan Chest pain Coronary artery disease, abnormal stress test Cardiac catheterization with complex intervention and stenting to the LAD with excellent result Planning for stenting the circumflex artery, discussed with the patient the management plan, offered him to return in a week. Patient preferred to stay in the hospital and have the procedure done. I will plan for the procedure for tomorrow morning Hypokalemia, replace and monitor Hypertension, continue current medication monitor blood pressure Hyperlipidemia, monitor lipids Diabetes mellitus, maintained on metformin, currently on hold BMI 35, we discussed weight loss LIS SWEENEY MD Feb 14, 2022 12:23
[2022-02-15 04:27] VITALS: BP 165/84
[2022-02-15 05:25] LABS: POTASSIUM 4.1 MMOL/L (3.6-5.0)
[2022-02-15 05:27] LABS: CALCIUM 8.9 MG/DL (8.5-10.1)
[2022-02-15 05:31] LABS: CREATININE SERUM 1.07 MG/DL (0.60-1.30)
[2022-02-15] MEDS ORDERED: HEParin (CATH LAB) 2,000 ML IV ONE (06:44)
[2022-02-15] MEDS ORDERED: LIDOCAINE 1% INJ 20 ML VIAL ONE (06:44)
[2022-02-15] MEDS: NS IV 1000 ML 1,000 ML IV SCH ×2 (07:17→08:41)
[2022-02-15] MEDS ORDERED: VERAPAMIL 5 MG/2 ML (CALAN) VIAL IV ONE (07:45)
[2022-02-15] MEDS ORDERED: fentaNYL INJ 100 MCG/2 ML AMP ONE (07:45)
[2022-02-15] MEDS ORDERED: MIDAZOLAM 2 MG/2 ML (VERSED) VIAL ONE (07:46)
[2022-02-15] MEDS ORDERED: HEParin 1000 UNIT/ML (10ML VIAL) FOR BOLUS ONE (07:46)
[2022-02-15] MEDS ORDERED: NITRO DRIP 25000 MCG/D5W 250 ML IV ONE (07:46)
--- NOTE | 2022-02-15 07:51 | Cardiology History & Physical ---
HPI-Cardiology Cardiology Consultation Date of Consultation 02/15/22 Date of Admission Time Seen by Provider: 07:47 Indication: CAD HPI 71-year-old gentleman with coronary artery disease, had an abnormal stress test, has been having chest pain, he was scheduled for cardiac catheterization possible PTCA Patient underwent the procedure and had multiple lesions, underwent IVUS and IFR to the LAD then 2 stents deployment in the LAD. Has a residual lesion in the circumflex artery. It was staged for later point. I visited with the patient and discussed the management plan, he preferred to stay in the hospital and have it done. And decided to keep him and proceed with the procedure PMH-Cardiology Immunizations Up To Date Date of Pneumonia Vaccine: Apr 05, 2008 Seasonal Allergies Seasonal Allergies: No Surgeries Yes (bilat CTR, left carotid sx) Respiratory Yes Cardiovascular Yes (stent) Neurological No Reproductive System Sexually Transmitted Disease: No HIV/AIDS: No Genitourinary Yes Kidney Stones Gastrointestinal Yes Polyps Musculoskeletal Yes Arthritis Endocrine Yes Diabetes, Insulin dep HEENT No (GLASSES) Loss of Vision: Denies Hearing Impairment: Denies Cancer No Psychosocial No Integumentary No Blood Transfusions No Adverse Rxn to Transfusion: No (N/A) Social History Patient Social History Marrital Status: Employed/Student: retired Family Hx Other Noncontributory ROS-Cardiology Review of Systems General: No Chills, No Night Sweats, No Fatigue, No Malaise, No Appetite HEENT: No Head Aches, No Visual Changes, No Eye Pain, No Ear Pain, No Dysphasia, No Sinus Congestion, No Post Nasal Drip, No Sore Throat Pulmonary: Dyspnea; No Cough, No Pleuritic Chest Pain Cardiovascular: Chest Pain; No: Palpitations, Orthopnea, Paroxysmal Noc. Dyspnea, Edema, Lt Headedness Gastrointestinal: No: Nausea, Vomiting, Abdominal Pain, Diarrhea, Constipation, Melena, Hematochezia Genitourinary: No Dysuria, No Frequency, No Incontinence, No Hematuria, No Retention Musculoskeletal: No: neck pain, shoulder pain, arm pain, back pain, hand pain, leg pain, foot pain Neurological: No: Weakness, Numbness, Incoordination, Change in speech, Confusion, Seizures Home Medications & Allergies Allergies: Coded Allergies: No Known Drug Allergies (Verified , 02/01/20) Home Medication List Reviewed: Yes Exam-Cardiology Vital Signs Vital Signs Date Time Temp Pulse Resp B/P (MAP) Pulse Ox O2 Delivery O2 Flow Rate FiO2 02/15/22 07:00 82 02/15/22 04:27 165/84 (111) Room Air 02/14/22 21:00 97 02/14/22 19:40 36.9 20 Exam General Appearance: Alert, Oriented X3, Cooperative, No Acute Distress HEENT: Atraumatic, PERRLA Respiratory: Clear to Auscultation, Normal Air Movement Cardiovascular: Regular Rate, Normal S1, Normal S2, No Murmurs Abdominal: Normal Bowel Sounds, Soft, No Tenderness, No Hepatosplenomegaly, No Masses Extremities: No Clubbing, No Cyanosis, No Edema, Normal Pulses, No Tende rness/Swelling Skin: No Rashes, No Breakdown, No Significant Lesion Neuro: Normal Gait, Normal Speech, Strength at 5/5 X4 Ext, Normal Tone, Sensation Intact Psych/Mental Status: Mental Status NL, Mood NL Results Labs Labs Laboratory Tests 02/14/22 20:25: Glucometer 129H 02/15/22 05:10: Sodium Level 144, Potassium Level 4.1, Chloride Level 110H, Carbon Dioxide Level 22, Anion Gap 12, Blood Urea Nitrogen 16, Creatinine 1.07, Estimat Glomerular Filtration Rate 74, BUN/Creatinine Ratio 15, Glucose Level 127H, Calcium Level 8.9 Microbiology 02/13/22 MRSA Screen - Final, Complete MRSA not isolated A/P-Cardiology Admission Diagnosis Chest pain Coronary artery disease Hypertension Hyperlipidemia Admission Status: Observation Assessment/Plan Coronary artery disease, Cardiac catheterization was done in July [address] Veliz showing small LAD with 70 percent stenosis, nondominant circumflex artery with 50-60 percent stenosis in the proximal second obtuse marginal artery. The right coronary artery was a dominant artery and a large posterolateral branch has 99% mid vessel stenosis, underwent Promus 2.2512 mm stent deployment with good results. Echocardiogram was done on March 07, 2020 showing normal LV size, mild LVH, focal basal hypertrophy, ejection fraction 55 to 65%, grade 1 diastolic dysfunction, left atrium 4.3 cm, PA 30 mmHg. Addendum on February 14, 2022 Cardiac catheterization was carried out on February 13, 2022 showing severe stenosis at multiple segment of the LAD, had successful deployment of 2 stents cynthia point Christie 2.5 x 32 followed by 2.5 x 15 expanded to 3.1 proximally and 2.8 distally with excellent results with successful IFR and IVUS. Patient has severe stenosis in the circumflex artery which will be staged to be done on February 15, 2022 Patent stent in the right PDA. Small vessel disease distally Stress test was done in July 2021 showing good exercise tolerance for 4 minutes on Luciano protocol achieving 91% of maximal expected heart rate. No significant ischemia or infarction, stress score 2, SDS 0, ejection fraction 57% Chest pain, resembling accelerating angina. Hypertensive heart disease with mild left ventricular hypertrophy, ejection fraction 60 percent, mild left atrial dilatation, mild MR, mild TR, PA 30 mmHg. His blood pressure is well controlled at this time, he was noted to have severe hypertension with exercise. Hypertension, good control at this time, continue to monitor Abnormal EKG with sinus rhythm and first-degree AV block, nonspecific T wave abnormality. Continue to monitor. Scheduled for 2-D echocardiogram. Carotid stenosis, history of left carotid endarterectomy done by in 2011. CTA of the neck was done in June 2015 reported as postsurgical changes in the left carotid system, no sign of recurrent significant stenosis, the carotid bifurcation on the right has mild disease did not progress. Vertebral arteries are normal, no acute abnormality was reported. Ultrasound was done late in March reported as moderate disease on the right with no significant obst ructive disease on the left. MRI of the head was done in February 2020 reporting no acute infarction, absence of the normal right vertebral artery flow, recommended vascular ultrasound follow-up. Carotid ultrasound was done in June 2021 showing mild disease on the right. Consistent with MRI findings in February 2020. Mild disease on the left. Continue to monitor History of severe headache, seen by Dr. Jamil Elias, neurologist in [place], work-up was negative. Feeling better. Continue to monitor Dizziness, was doing well for the past 3 years, started to have increasing dizziness again. EKG done in the office showing sinus rhythm with early transition V1 and V2 nonspecific T wave abnormality. Hyperlipidemia, had lab work done in Dr. Crowell's office, continue to follow Mild renal insufficiency, continue to monitor Obesity, BMI is 34, we discussed weight loss and limiting his portion size, he has been doing well with diabetic control. Diabetes mellitus, followed and managed by primary care physician Family history of heart disease mainly including his father. History of carpal tunnel surgery done in the 80s LIS SWEENEY MD Feb 15, 2022 07:51
--- NOTE | 2022-02-15 07:52 | Cardiac Procedure Note-CS/ASA ---
Pre-Procedure Note Pre-Op Procedure Note Date of Available H&P: Feb 15, 2022 Date H&P Reviewed: Feb 13, 2022 Time H&P Reviewed: 07:51 History & Physical: H&P Reviewed, Patient Examed, No changes noted Pre-Operative Diagnosis: Coronary artery disease Conscious Sedation Pre-Proced Time 07:51 ASA Score 3 For ASA 3 and 4: Consider anesthesia and medical clearance. Also, for patients with a history of failed moderate sedation consider anesthesia. Airway Lungs Heart ASA score ASA 1: a normal healthy patient ASA 2: a patient with a mild systemic disease (mid diabetes, controlled hypertension, obesity x ASA 3: a patient with a severe systemic disease that limits activity (angina, COPD, prior Myocardial infarction) ASA 4: a patient with an incapacitating disease that is a constant threat to life (CHF, renal failure) ASA 5: a moribund patient not expected to survive 24 hrs. (ruptured aneurysm) ASA 6: a declared brain- patient whose organs are being harvested. For emergent operations, add the letter E after the classification Mallampati Classification Grade 3 Sedation Plan Analgesia, Amnesia, Plan communicated to team members, Discussed options with patient/fam, Discussed risks with patient/fam The patient is an appropriate candidate to undergo the planned procedure, sedation, and anesthesia. The patient immediately re-assessed prior to indication. LIS SWEENEY MD Feb 15, 2022 07:52
[2022-02-15] MEDS ORDERED: ASPIRIN 81 MG CHEW (CHILDREN'S ASA) ONE (08:42)
[2022-02-15] MEDS ORDERED: TICAGRELOR 90 MG TABLET (BRILINTA) PO ONE (08:42)
[2022-02-15] MEDS: ASPIRIN E.C. 81 MG (ECOTRIN) TAB PO SCH (08:43)
[2022-02-15] MEDS: TICAGRELOR 90 MG TABLET (BRILINTA) PO SCH (08:43)
[2022-02-15] MEDS ORDERED: METF-397 PO (08:45)
[2022-02-15] MEDS ORDERED: TICA90TA PO (08:45)
[2022-02-15] MEDS ORDERED: NS IV 1000 ML 1,000 ML IV SCH (08:45)
--- NOTE | 2022-02-15 08:45 | Discharge Inst-Post CATH ---
Discharge Inst-CATH/EP Problems Reviewed?: Yes Post Cardiac Cath/EP D/C Inst Follow Up/Plan Hold metformin for [address] Delarosa's office in 2 weeks <b>CARDIAC CATH/EP PROCEDURE DISCHARGE INSTRUCTIONS</b> ACTIVITY * Go Home directly and rest. * Limit activity of the leg (or wrist if it was used) for 7 days including aerobics, swimming, jogging, bicycling, etc. * Restrict stair-climbing for 7 days if possible, if not, climb up with your non-cath leg, then bring together on the same step. * Avoid lifting, pushing, pulling or excessive movement of the affected extremity for 7 days. * Customary sexual activity may be resumed after 2 days-use caution not to use a position that strains or causes pain to the affected extremity. * No driving for 24 hours. * NO SMOKING. * Avoid straining for bowel movements for 7 days. * Gentle walking on level ground is allowed. * Returning to work will depend on the type of procedure and the results. Your doctor will discuss this with you. CALL YOUR DOCTOR FOR ANY OF THE FOLLOWING: *If bleeding from the puncture site occurs- Apply gentle pressure to site with clean cloth and call your doctor or EMS. * If a knot or lump forms under the skin, increases in size, or causes pain. * If bruising appears to be worsening or moving further down your leg instead of disappearing. * Temperature above 101 F. CARE OF YOUR GROIN INCISION; * Bruising or purple discoloration of the skin near the puncture site is common. * You may shower only, no bathtub bathing for 5 days. Be careful to avoid slipping as your leg may feel stiff. * If a closure device was used on your femoral artery, please see the attached guide regarding care of the device and your leg. * Leave dressing on FOR 24 hours. CARE OF YOUR WRIST INCISION; * Bruising or purple discoloration of the skin near the puncture site is common. * You may shower. * DO NOT submerge wrist. * Leave dressing on FOR 24 hours. LIS DELAROSA MD Feb 15, 2022 08:45
--- NOTE | 2022-02-15 08:49 | Cardiac Cath Report ---
Cardiac Cath Report Physician (s)/Pie Maker Machine (s) Physician LIS SWEENEY MD Pre-Procedure Diagnosis Pre-Procedure Diagnosis: Coronary artery disease Post-Procedure Note Procedure Start Date: Feb 15, 2022 Name of Procedure: Primary stenting of the circumflex artery Findings/Procedure Note PROCEDURE NOTE: 71 years old gentleman with coronary artery disease, underwent complex intervention of the LAD with 2 stents. Has significant lesion in the circumflex artery that was staged. After explaining the procedure to the patient, all pros and cons were explained, all questions were answered. The patient signed the consent and then he was placed on the cardiac catheterization laboratory. Groin was prepped SL fashion local anesthesia was used. Sheath placed in the right radial artery, EBU 3.5 guide was advanced to the left coronary system, I could not cross the circumflex artery with BMW wire, I used whisper extra-support advanced to the distal circumflex artery, I proceeded with primary stenting using cynthia point 2.5 x 18 mm expanded to 2.8 mm with excellent results. At the end of the procedure the sheath was removed. Vascular band was used FINDINGS: ANATOMY: Left Main is free of obstructive disease Left Anterior Descending has patent stent with mild disease distally, the second and third diagonal artery are known to have severe ostial stenosis Left Circumflex has severe stenosis after the origin of the proper circumflex artery, primary stenting using cynthia point stent 2.5 x 18 mm expanded to 2.8 mm with excellent results. No residual stenosis Right Coronary Artery was not evaluated CONCLUSION: 1. Successful primary stenting of the circumflex artery with cynthia point stent 2.5 x 18 mm expanded to 2.8 mm with no residual stenosis. 2. Patent stents in the LAD DISCUSSION AND RECOMMENDATION: Continue on aspirin and Brilinta Anesthesia Type: Conscious Sedation Estimated blood loss (mL): 20 ml Contrast Amount: 61 ml Total Radiation Dose: 850 mGy Post-Procedure Diagnosis Post-operative diagnosis: Coronary artery disease Hypertension Hyperlipidemia Diabetes mellitus LIS SWEENEY MD Feb 15, 2022 08:49
[2022-02-15 09:00] VITALS: BP 125/67
[2022-02-15 09:15] VITALS: BP 112/66
[2022-02-15 09:30] VITALS: BP 128/81
[2022-02-15 09:45] VITALS: BP 139/75
[2022-02-15] MEDS: lisINopril 5 MG (PRINIVIL) TABLET PO SCH (10:14)
[2022-02-15] MEDS: TAMSULOSIN 0.4 MG (FLOMAX) CAP PO SCH (10:14)
[2022-02-15 11:55] VITALS: BP 136/82
== END 2022-02-15 12:55 | disposition home or self-care (01) ==
LOC: CATH 09:07 → ICU 13:03 → CSD 02-14 10:00 → CATH 02-15 12:55
PROVIDERS: ATTEND Internal Medicine Cardiovascular Disease
DX: I25.110 Atherosclerotic heart disease of native coronary artery with unstable angina pectoris (principal); I10 Essential (primary) hypertension; Z79.82 Long term (current) use of aspirin; E66.01 Morbid (severe) obesity due to excess calories; Z68.35 Body mass index [BMI] 35.0-35.9, adult; E11.9 Type 2 diabetes mellitus without complications; Z79.84 Long term (current) use of oral hypoglycemic drugs; I65.23 Occlusion and stenosis of bilateral carotid arteries; I34.0 Nonrheumatic mitral (valve) insufficiency; E78.2 Mixed hyperlipidemia; Z79.899 Other long term (current) drug therapy
CPT/HCPCS: 71045; 80048 ×2; 80053; 80061; 81000; 82947 ×2; 85027 ×2; 85610; 85730; 87081; 92978; 93005 ×2; 93458; 93571; C1725 ×2; C1753; C1769 ×3; C1874 ×3; C1887 ×3; C1894 ×2; C9600 ×2; 36415

== ENCOUNTER → 2022-05-24 | Outpatient (CLI) | payer MEDICARE, OTHER ==
[~2022-05-24] MED LIST changes: +ASPI-1238 PO; +CHOL-6 PO; +DICL75TA2 PO; +INSU100V37 SQ; +LISI5TAB20 PO; +OMG1KC PO; +RED600CA2 PO; +SEMA0.25 SQ; +TICA90TA PO; +TMSL.4C PO; +UBIQ200C3 PO; +ZINC50TA11 PO
== END ==
LOC: LAB 11:21
PROVIDERS: ATTEND Surgery
DX: R19.7 Diarrhea, unspecified (principal)
CPT/HCPCS: 82274; 87015; 87045; 87046; 87324; 87328; 87329; 87449; 87899

== ENCOUNTER 2022-12-21 08:28 | Emergency (ER) | payer MEDICARE, OTHER ==
[~2022-12-21] VITALS: Ht 187 cm; Wt 136.0 kg
--- NOTE | 2022-12-21 09:05 | ED Cardiac General ---
History of Present Illness General Chief Complaint: Cardiac/General Problems Stated Complaint: HEAT PALP, SWELLING Nursing Triage Note: PT STATES HAS BEEN HAVING HEART PALPATIONS. WAS SEEN AT PCP YESTERDAY. DENIES C/P. PT STATES HAS NUMBNESS FROM HIPS TO FEET BILATERALLY. PT HAS ALSO HAD SOME LOWER EXT EDEMA PAST FEW DAYS Source: patient Exam Limitations: no limitations History of Present Illness Date Seen by Provider: Dec 21, 2022 Time Seen by Provider: 08:55 Initial Comments 72-year-old male presents the emergency department today for "heart issues." He states he usually takes his pulse but put his finger in his ear and felt yesterday like he was dropping every sixth or seventh beat. He saw his primary care doctor who stated he had an irregular heartbeat. They put in a referral to cardiology but the patient's says they called 3 times to the plate filler office yesterday and did not receive any call back. She was concerned that they were unable to speak with the plate filler yesterday so they came to the emergency department today. The patient is completely asymptomatic at the time of the evaluation. He specifically denies any chest pain, shortness of breath. Over the last several months he has had intermittent tingling in his arm from the elbow down and some occasional tingling of his left foot. This is not present at this time. He also states he has had some intermittent swelling of his bilateral lower extremities but again this has subsided today. No fevers or chills. No nausea or vomiting. No abdominal pain or changes in bowel or b ladder habits. All other systems reviewed and negative except documented per HPI. Voice recognition software was used to help create this chart Allergies and Home Medications Allergies Coded Allergies: No Known Drug Allergies (Verified , 02/01/20) Patient Home Medication List Home Medication List Reviewed: Yes Aspirin (Aspirin EC) 81 Mg Tablet., 81 MG PO DAILY, (Reported) Entered as Reported by: EDGARD BURROWS on 02/13/22 1025 Cholecalciferol (Vitamin D3) (Vitamin D3) 250 Mcg (18233 Unit) Capsule, 250 MCG PO DAILY, (Reported) Entered as Reported by: EDGARD BURROWS on 02/13/22 1025 Diclofenac Sodium (Diclofenac Sodium) 75 Mg Tablet., 75 MG PO BID, (Reported) Entered as Reported by: EDGARD BURROWS on 02/13/22 1025 Insulin Degludec (Tresiba) 100 Unit/Ml Vial, 10 UNIT SQ HS, (Reported) Entered as Reported by: EDGARD BURROWS on 02/13/22 102 Lisinopril (Lisinopril) 5 Mg Tablet, 5 MG PO DAILY, (Reported) Entered as Reported by: EDGARD BURROWS on 02/13/22 102 Metformin HCl (Metformin HCl) 500 Mg Tablet, 1,000 MG PO BID Prescribed by: LIS SWEENEY on 02/15/22 0845 [place] 3 Polyunsat Fatty Acids (Fish Oil 1,000 mg Capsule) 340 Mg-1,000 Mg Cap, 1,000 MG PO BID, (Reported) Entered as Reported by: EDGARD BURROWS on 02/13/22 1025 Red Yeast Rice (Red Yeast Rice) 600 Mg Capsule, 600 MG PO BID, (Reported) Entered as Reported by: EDGARD BURROWS on 02/13/22 102 Semaglutide (Ozempic) 0.25 Mg/0.2 Ml Pen.injctr, 0.5 MG SQ WEEK, (Reported) Entered as Reported by: EDGARD BURROWS on 02/13/22 102 Tamsulosin HCl (Flomax) 0.4 Mg Cap, 0.4 MG PO DAILY, (Reported) Entered as Reported by: EDGARD BURROWS on 02/13/22 102 Ticagrelor (Brilinta) 90 Mg Tablet, 90 MG PO BID Prescribed by: LIS SWEENEY on 02/15/22 0845 Ubiquinol (Coqmax Ubiquinol) 200 Mg Capsule, 200 MG PO BID, (Reported) Entered as Reported by: EDGARD BURROWS on 02/13/22 102 Zinc Gluconate (Zinc) 50 Mg Tablet, 50 MG PO DAILY, (Reported) Entered as Reported by: EDGARD BURROWS on 02/13/22 102 Review of Systems Review of Systems Constitutional: see HPI Past Mqihpax-Zvjnan-Vwjeir Hx Patient Social History Tobacco Use?: No Substance use?: No Alcohol Use?: No Pt feels they are or have been: No Seasonal Allergies Seasonal Allergies: No Past Medical History Surgery/Hospitalization HX: HEART STENTS, CARPAL TUNNEL BILAT, CAROTID L SIDE CLEANED Surgeries: Yes (bilat CTR, left carotid sx) Coronary Stent Respiratory: Yes Sleep Apnea Currently Using CPAP: Yes Cardiac: Yes (stent) Coronary Artery Disease, Hypertension Neurological: No Sexually Transmitted Disease: No HIV/AIDS: No Genitourinary: Yes Kidney Stones Gastrointestinal: Yes Polyps Musculoskeletal: Yes Arthritis Endocrine: Yes Diabetes, Insulin dep HEENT: No (GLASSES) Loss of Vision: Denies Hearing Impairment: Denies Cancer: No Psychosocial: No Integumentary: No Blood Disorders: No Adverse Reaction/Blood Tranf: No (N/A) Physical Exam Vital Signs Vital Signs - First Documented 12/21/22 08:30 Pulse 85 Resp 16 B/P (MAP) 183/88 (119) Pulse Ox 97 Capillary Refill : Less Than 3 Seconds Height, Weight, BMI Height: 6'2.00" Weight: 240lbs. 0.0oz. [id number]; 38.00 BMI Method:Stated General Appearance: No Apparent Distress, WD/WN HEENT: Normal ENT Inspection, Pharynx Normal Neck: Full Range of Motion, Supple Respiratory: Chest Non Tender, Lungs Clear, Normal Breath Sounds, No Accessory Muscle Use, No Respiratory Distress Cardiovascular: Regular Rate, Rhythm, No Edema, No Murmur, Normal Peripheral Pulses Gastrointestinal: Normal Bowel Sounds, No Organomegaly, Non Tender, Soft Extremity: Normal Capillary Refill, Normal Inspection, Normal Range of Motion, Non Tender, No Calf Tenderness, No Pedal Edema Neurologic/Psychiatric: Alert, Oriented x3, No Motor/Sensory Deficits, Normal Mood/Affect, 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 Norm as Tested Skin: Normal Color, Warm/Dry Progress/Results/Core Measures Results/Orders Lab Results Laboratory Tests Test 12/21/22 08:35 Range/Units White Blood Count 6.1 4.3-11.0 10^3/uL Red Blood Count 4.46 4.30-5.52 10^6/uL Hemoglobin 12.5 L 13.3-17.7 g/dL Hematocrit 40 40-54 % Mean Corpuscular Volume 89 80-99 fL Mean Corpuscular Hemoglobin 28 25-34 pg Mean Corpuscular Hemoglobin Concent 32 32-36 g/dL Red Cell Distribution Width 14.7 H 10.0-14.5 % Platelet Count 194 130-400 10^3/uL Mean Platelet Volume 9.5 9.0-12.2 fL Immature Granulocyte % (Auto) 1 % Neutrophils (%) (Auto) 69 42-75 % Lymphocytes (%) (Auto) 21 12-44 % Monocytes (%) (Auto) 7 0-12 % Eosinophils (%) (Auto) 3 0-10 % Basophils (%) (Auto) 1 0-10 % Neutrophils # (Auto) 4.2 1.8-7.8 10^3/uL Lymphocytes # (Auto) 1.3 1.0-4.0 10^3/uL Monocytes # (Auto) 0.4 0.0-1.0 10^3/uL Eosinophils # (Auto) 0.2 0.0-0.3 10^3/uL Basophils # (Auto) 0.0 0.0-0.1 10^3/uL Immature Granulocyte # (Auto) 0.1 0.0-0.1 10^3/uL Sodium Level 141 135-145 MMOL/L Potassium Level 4.4 3.6-5.0 MMOL/L Chloride Level 108 H 98-107 MMOL/L Carbon Dioxide Level 22 21-32 MMOL/L Anion Gap 11 5-14 MMOL/L Blood Urea Nitrogen 29 H 7-18 MG/DL Creatinine 1.16 0.60-1.30 MG/DL Estimat Glomerular Filtration Rate 67 BUN/Creatinine Ratio 25 Glucose Level 124 H 70-105 MG/DL Calcium Level 9.0 8.5-10.1 MG/DL My Orders Orders - JOSEPH CAMPOS DO Ekg Tracing (12/21/22 08:34) Basic Metabolic Panel (12/21/22 09:02) Cbc With Automated Diff (12/21/22 09:02) Vital Signs/I&O 12/21/22 08:30 Pulse 85 Resp 16 B/P (MAP) 183/88 (119) Pulse Ox 97 Blood Pressure Mean: 119 Comment Sinus rhythm with a rate of 76 bpm. WA interval is 252, otherwise normal intervals. Normal axis. No ST or T wave abnormalities. No ectopy. Departure Communication (Admissions) Patient is completely asymptomatic at the time of his presentation, and was frustrated because they could not get a hold of plate filler to schedule appointment yesterday. I advised there is no evidence of an emergent medical condition at this time and they are stable to follow-up with cardiology. They will have to call on Friday. Advised strict return precautions. Have independently reviewed labs and they are negative including normal chemistry and CBC. EKG is nonischemic. Impression Primary Impression: Palpitations Disposition: HOME, SELF-CARE Condition: Stable Departure-Patient Inst. Referrals: SHAMIKA STOREY (PCP) Primary Care Physician MANPREET CAPUTO (Family) Primary Care Physician Patient Instructions: Palpitations Add. Discharge Instructions: You are seen in the emergency department today for palpitations. No emergent medical cause identified. Your electrolytes are normal. The electrical tracing of your heart does show a slight irregular rhythm however there is no evidence for heart attack or other emergent condition at this time. Call Friday to schedule a cardiology appointment in the next couple weeks. [facility] All discharge instructions reviewed with patient and/or family. Voiced understanding. JOSEPH CAMPOS DO Dec 21, 2022 09:05
[2022-12-21 09:07] LABS: BASOPHILS % (AUTO) 1 % (0-10); EOSINOPHILS # (AUTO) 0.2 10^3/uL (0.0-0.3); EOSINOPHILS % (AUTO) 3 % (0-10); HEMATOCRIT 40 % (40-54); HEMOGLOBIN 12.5 g/dL (13.3-17.7); LYMPHOCYTES # (AUTO) 1.3 10^3/uL (1.0-4.0); LYMPHOCYTES % (AUTO) 21 % (12-44); MEAN CORPUSCULAR HEMOGLOBIN 28 pg (25-34); MEAN CORPUSCULAR HGB CONC 32 g/dL (32-36); MEAN CORPUSCULAR VOLUME 89 fL (80-99); MEAN PLATELET VOLUME 9.5 fL (9.0-12.2); MONOCYTES # (AUTO) 0.4 10^3/uL (0.0-1.0); MONOCYTES % (AUTO) 7 % (0-12); NEUTROPHILS # (AUTO) 4.2 10^3/uL (1.8-7.8); NEUTROPHILS % (AUTO) 69 % (42-75); PLATELET COUNT 194 10^3/uL (130-400); WHITE BLOOD COUNT 6.1 10^3/uL (4.3-11.0)
[2022-12-21 09:20] LABS: POTASSIUM 4.4 MMOL/L (3.6-5.0)
[2022-12-21 09:25] LABS: CREATININE SERUM 1.16 MG/DL (0.60-1.30)
[2022-12-21 10:06] VITALS: BP 160/64
== END 2022-12-21 10:06 | disposition home or self-care (01) ==
LOC: EDUNIT# 08:28 → ER 08:30
DX: R00.2 Palpitations (principal); G47.30 Sleep apnea, unspecified; Z95.5 Presence of coronary angioplasty implant and graft; Z99.89 Dependence on other enabling machines and devices
CPT/HCPCS: 36415; 80048; 85025; 93005

== ENCOUNTER → 2022-12-31 | Outpatient (CLI) | payer MEDICARE, OTHER ==
[2022-12-31 10:26] LABS: CALCIUM 9.3 MG/DL (8.5-10.1); CREATININE SERUM 1.28 MG/DL (0.60-1.30); POTASSIUM 4.6 MMOL/L (3.6-5.0)
== END ==
LOC: CARD 09:56
PROVIDERS: ATTEND Physician Assistant
DX: I34.0 Nonrheumatic mitral (valve) insufficiency (principal); I25.10 Atherosclerotic heart disease of native coronary artery without angina pectoris; I11.9 Hypertensive heart disease without heart failure
CPT/HCPCS: 80048; 84443; C8929; 36415; 93306